=== PATIENT | male | born 1995 | race Two or more races ===

== ENCOUNTER 2019-10-02 22:12 | Emergency (ER) | payer OTHER ==
[~2019-10-02] VITALS: Ht 182.9 cm; Wt 77.6 kg
== END 2019-10-03 00:30 | disposition home or self-care (01) ==
LOC: ER 22:12
DX: S61.421A Laceration with foreign body of right hand, initial encounter (principal); W26.8XXA Contact with other sharp object(s), not elsewhere classified, initial encounter; Y93.89 Activity, other specified; Y92.511 Restaurant or cafe as the place of occurrence of the external cause; Y99.8 Other external cause status

== ENCOUNTER 2019-10-12 11:06 | Emergency (ER) | payer OTHER ==
[~2019-10-12] VITALS: Ht 182.9 cm; Wt 79.4 kg
== END 2019-10-12 14:04 | disposition home or self-care (01) ==
LOC: ER 11:06
DX: Z48.02 Encounter for removal of sutures (principal)